=== PATIENT | female | born 1970 | race Caucasian/White ===

== ENCOUNTER 2021-04-06 09:17 | Emergency (ER) | payer SELFPAY ==
[~2021-04-06] VITALS: Ht 165.1 cm; Wt 59.0 kg
[2021-04-06] MEDS ORDERED: OLANZAPINE 10 MG/VIAL IM STA (09:35)
[2021-04-06] MEDS ORDERED: LORAZEPAM 2MG/ML CPJ IM STA ×2 (09:35→18:33)
[2021-04-06 10:16] LABS: BASOPHILS % 0.4 % (0.0-2.0); EOSINOPHILS % 0.1 % (0.0-5.0); HEMATOCRIT. 40.4 % (36.0-48.0); HEMOGLOBIN. 13.3 g/dL (12.0-16.0); LYMPHOCYTES % 12.3 % (20.0-50.0); MEAN PLATELET VOLUME 8.9 fl (7.4-10.4); MONOCYTES % 7.1 % (2.0-8.0); NEUTROPHILS % 80.1 % (40.0-76.0); PLATELET 309 x1000/uL (130-400); RED BLOOD CELL COUNT 4.59 mill/uL (4.2-5.4); RED CELL DISTRIBUTION WIDTH 16.3 % (11.6-14.6)
[2021-04-06 10:22] LABS: CHLORIDE 109 mEq/L (98-107)
[2021-04-06 10:28] LABS: ETHANOL BLOOD < 10 mg/dL
[2021-04-06 12:15] LABS: CLARITY URINE CLOUDY (CLEAR); COLOR URINE DARK YELLOW (YELLOW); KETONES URINE 1+ (NEGATIVE); LEUKOCYTE ESTERASE URINE 1+ (NEGATIVE); NITRITE URINE NEGATIVE (NEGATIVE); OCCULT BLOOD URINE NEGATIVE (NEGATIVE); PH URINE 5.5 (4.5-8.0); PROTEIN URINE 1+ (NEGATIVE); SPECIFIC GRAVITY URINE 1.026 (1.005-1.030)
[2021-04-06 12:30] LABS: *BARBITURATES SCREEN URINE NEGATIVE (NEGATIVE); *BENZODIAZEPINES SCREEN URINE NEGATIVE (NEGATIVE); *COCAINE SCREEN URINE NEGATIVE (NEGATIVE); METHADONE URINE SCREEN NEGATIVE (NEGATIVE)
[2021-04-06 12:31] LABS: PHENCYCLIDINE URINE SCREEN NEGATIVE (NEGATIVE)
[2021-04-06 12:33] LABS: *AMPHETAMINES SCREEN URINE PRESUMTIVE POSITIVE (NEGATIVE); CANNABINOID URINE SCREEN PRESUMTIVE POSITIVE (NEGATIVE); OPIATES URINE SCREEN PRESUMTIVE POSITIVE (NEGATIVE)
[2021-04-06] MEDS ORDERED: HALOPERIDOL LACTATE 5MG/ML VIAL IM STA (18:33)
[2021-04-06] MEDS ORDERED: DIPHENHYDRAMINE 50MG/ML VIAL IM STA (18:33)
[2021-04-06] MEDS ORDERED: DIPHENHYDRAMINE 50MG/ML VIAL ONE (18:44)
[2021-04-06] MEDS ORDERED: LORAZEPAM 2MG/ML CPJ ONE (18:44)
[2021-04-07 06:31] VITALS: BP 148/97
== END 2021-04-07 07:51 | disposition home or self-care (01) ==
LOC: ER 09:17
DX: F15.90 Other stimulant use, unspecified, uncomplicated (principal); Z98.890 Other specified postprocedural states
CPT/HCPCS: 36415; 80053; 80305; 80320; 81003; 85025; 87086; 96372; 99285; J1200; J1630; J2060; J3490; Z7610; G0480